=== PATIENT | female | born 1960 | race African-American/Black ===

== ENCOUNTER 2016-10-09 06:30 | Emergency (ER) | payer MEDICAID ==
[~2016-10-09] VITALS: Ht 149.9 cm; Wt 45.4 kg
[~2016-10-09 06:30] MED LIST: KEFLEX500 MG ORAL; PRILOSEC40 MG ORAL; albuterol
[2016-10-09] MEDS ORDERED: ZANTAC150 MG ORAL (07:00)
[2016-10-09] MEDS ORDERED: AUGMENTIN 875-1 EAC1 ORAL (07:09)
[2016-10-09 07:17] VITALS: BP 120/77
--- NOTE | 2016-10-09 08:11 | Emergency Room Report ---
History of Present Illness General Chief Complaint: General Complaint Source: Patient Present Illness HPI 55-year-old female presents ED complaining of pain and swelling in her left forearm. States 3 days ago she fell and a splinter got stuck in her left forearm. Tetanus is up-to-date. Patient notes pain and swelling to the left forearm. Pain is throbbing, 3/10, nonradiating. No aggravating relieving factors. No fevers or chills. Denies discharge. Denies any other associated symptoms. Allergies: Coded Allergies: No Known Allergies (Unverified , 07/05/15) Patient History Past Medical History: asthma, COPD, GERD Past Surgical History: none Pertinent Family History: none Social History: Denies: alcohol use, drug use, smoking Last Menstrual Period: 3 years ago Now: No : 1 Para: 1 Immunizations: UTD Reviewed Nursing Documentation: PMH: Agreed, PSxH: Agreed Nursing Documentation-PMH Hx Asthma: Yes Hx COPD: Yes Hx Gastrointestinal Problems: Yes - ulcers Review of Systems All Other Systems: negative except mentioned in HPI Physical Exam Vital Signs Date Time Temp Pulse Resp B/P Pulse Ox O2 Delivery O2 Flow Rate FiO2 10/09/16 06:52 98.2 83 20 118/82 100 Room Air Sp02 EP Interpretation: reviewed, normal General Appearance: no apparent distress, alert, GCS 15, non-toxic Head: normocephalic Eyes: bilateral eye PERRL, bilateral eye normal inspection ENT: normal ENT inspection Neck: normal inspection Respiratory: normal inspection Cardiovascular #1: normal inspection Gastrointestinal: normal inspection Rectal: deferred Genitourinary: no CVA tenderness Musculoskeletal: tender - TTP to L forearm. mild swelling noted. +erythema. no fluctuance Neurologic: alert, oriented x3, responsive, motor strength/tone normal, sensory intact, speech normal Psychiatric: normal inspection Skin: other - erythema/swelling to L forearm Lymphatic: normal inspection Medical Decision Making Diagnostic Impression: Primary Impression: Splinter of upper extremity Qualified Codes: S40.852A - Superficial foreign body of left upper arm, initial encounter ER Course Hospital Course 55-year-old female presents to ED with redness, swelling to left forearm. Status post fell on splinter 3 days ago Differential diagnoses include: Cellulitis, dermatitis, insect bite, abscess Clinical course Patient placed on stretcher. After initial history, physical exam reveals a female in no acute distress. On exam there is a site for mild erythema and swelling to the left forearm. No fluctuance. No discharge. I am unable to palpate the foreign body. Given the wound is 3 days old I explained to the patient we are unable to remove the splinter as it can cause further damage. Patient will be placed on antibiotics and instructed that the foreign body will resorb Diagnosis - splinter of upper extremity stable and discharged to home with prescription for Augmentin. Instructed to followup with PMD. Instructed return to ED if symptoms recur or worsen Last Vital Signs Date Time Temp Pulse Resp B/P Pulse Ox O2 Delivery O2 Flow Rate FiO2 10/09/16 07:17 73 16 120/77 100 Room Air 10/09/16 07:17 98.0 Status: improved Disposition: HOME, SELF-CARE Condition: Stable Scripts Amoxicillin/Potassium Clav 875-125* (AUGMENTIN 875-125 TABLET*) 1 Each Tablet 1 TAB ORAL TWICE A DAY, #14 TAB Prov: CHANG LOMELI M.D. 10/09/16 Referrals: NOT CHOSEN [facility]Y/,REFERRING (PCP) Patient Instructions: Sliver Removal, Care After CHANG LOMELI M.D. Oct 09, 2016 08:11
== END 2016-10-09 07:19 | disposition home or self-care (01) ==
LOC: EMR 07:07
DX: S40.852A Superficial foreign body of left upper arm, initial encounter (principal); J44.9 Chronic obstructive pulmonary disease, unspecified; J45.909 Unspecified asthma, uncomplicated; K21.9 Gastro-esophageal reflux disease without esophagitis; W45.8XXA Other foreign body or object entering through skin, initial encounter; Y92.9 Unspecified place or not applicable; Y99.8 Other external cause status
CPT/HCPCS: 99283

== ENCOUNTER 2017-01-07 11:53 | Emergency (ER) | payer MEDICAID ==
[~2017-01-07] VITALS: Ht 149.9 cm; Wt 44.5 kg
[~2017-01-07 11:53] MED LIST changes: +AUGMENTIN 875-1 EAC1 ORAL; +ZANTAC150 MG ORAL
[2017-01-07 12:11] VITALS: BP 116/79
[2017-01-07] MEDS ORDERED: Ketorolac 30mg Inj IM ONE (12:45)
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
[2017-01-07 15:21] VITALS: BP 115/75
[2017-01-07 16:50] VITALS: BP 115/75
--- NOTE | 2017-01-08 10:52 | Diagnostic Imaging Report ---
Indication: Back pain Technique: Continuous helical transaxial imaging of the lumbar spine was obtained from the lung bases to the pubic symphysis. No IV contrast was administered. Coronal 2-D reformats were also obtained. Study obtained in a Siemens sensation [address] Total Dose length Product (DLP): [address] Dose Index Volume (CTDIvol): 9 mGy Comparison: None Findings: There is an acute fracture of the right transverse process of L2 and also at L3. The vertebral bodies pedicles and remainder of the posterior elements appear intact otherwise. Narrowing and vacuum phenomena of several intervertebral discs noted including L2-3, L3-4 and L4-5. There is sclerosis and hypertrophy of the facets at multiple levels. Disc herniations are also demonstrated at L2-3, L3-4 and L4-5. The discs are visualized because of some calcification of portions of the annulus and disc. Acuity of these disc herniations is unknown. There is the suggestion of narrowing of the lateral recess and possible central stenosis as well at these 3 levels. Alignment is normal. Bones are osteopenic. Transitional anatomy is noted at the lumbosacral junction. There is apparent pseudoarthrosis noted on the right side (for example image 54, series 4). Impression: Acute right transverse process fractures of L2 and L3. Degenerative disc disease and facet arthropathy at multiple levels as described above. Disc herniations at L2-3, L3-4 and L4-5, 2 indeterminate. Transitional anatomy. The CT scanner at [facility] is accredited by the [employer] and the scans are performed using dose optimization techniques as appropriate to a performed exam including Automatic Exposure control.
== END 2017-01-07 16:52 | disposition short-term general hospital (02) ==
LOC: EMR 13:10
DX: S32.008A Other fracture of unspecified lumbar vertebra, initial encounter for closed fracture (principal); N28.1 Cyst of kidney, acquired; M47.897 Other spondylosis, lumbosacral region; R53.1 Weakness; M41.9 Scoliosis, unspecified; G89.29 Other chronic pain
CPT/HCPCS: 72131; 96372; 99285; J1885

== ENCOUNTER 2019-01-11 06:11 | Emergency (ER) | payer MEDICAID ==
[~2019-01-11] VITALS: Ht 149.9 cm; Wt 41.7 kg
--- NOTE | 2019-01-11 06:21 | NUR ---
ED Nurse Note: DIA [place] FROM [place] WITH LEFT LEG PAIN AND BODYACHE SINCE MORNING. AO3; FLAT AFFECT; UNKEMPT. NAD. VSS. AMBULATED FROM EMS GURNEY TO BED WITH ASSISTANCE. RESPIRATIONS EVEN AND UNLABORED.
[2019-01-11 06:24] VITALS: BP 117/74
--- NOTE | 2019-01-11 06:36 | NUR ---
ED Nurse Note: ERMD AT BEDSIDE.
--- NOTE | 2019-01-11 06:48 | Emergency Room Report ---
History of Present Illness General Chief Complaint: Pain Source: Patient, EMS Present Illness HPI Patient brought in by paramedics for reports of initially left leg pain Upon evaluation patient resting comfortably in the bed Requires several attempts of arousal to awaken patient then points to her right leg Reports that is been hurting for over a month Nurse reports that patient had initially pointed to her left leg No obvious injuries are clinically visible Patient is allowed to rest and will reattempt obtaining further history when more awake Allergies: Coded Allergies: No Known Allergies (Unverified , 07/05/15) Patient History Past Medical History: see triage record Pertinent Family History: none Now: No Reviewed Nursing Documentation: PMH: Agreed; PSxH: Agreed Nursing Documentation-PMH Hx Asthma: Yes Review of Systems All Other Systems: negative except mentioned in HPI Physical Exam Vital Signs Date Time Temp Pulse Resp B/P (MAP) Pulse Ox O2 Delivery O2 Flow Rate FiO2 01/11/19 06:12 98.4 77 17 117/74 (88) 96 Room Air Sp02 EP Interpretation: reviewed, normal General Appearance: well appearing, no apparent distress Head: normocephalic, atraumatic Eyes: bilateral eye PERRL, bilateral eye EOMI ENT: hearing grossly normal, normal pharynx Neck: full range of motion, supple Respiratory: lungs clear Cardiovascular #1: regular rate, rhythm Gastrointestinal: non tender, soft Musculoskeletal: normal inspection, back normal Neurologic: responsive - On initial evaluation requires several arousal attempts to awaken Skin: normal color, no rash Lymphatic: no adenopathy Procedures Splinting Splinting : Consent: Verbal Location: Ankle Pre-Made Type: aircast Splint: sugar-tong Pre-Proc Neuro Vasc Exam: normal Post-Proc Neuro Vasc Exam: normal Patient Tolerated: Well Complications: None Medical Decision Making Diagnostic Impression: Primary Impression: Ankle sprain ER Course Patient's differential initially was limited given her mentation After resting over several hours patient has awakened reports that she was having pain to the right ankle and lower leg Does not recall any acute episode of trauma denies any redness pain is worse with attempting to ambulate X-ray imaging is done does not show any acute pathology Patient had splinting applied with crutches and is stable for close outpatient follow-up Other differential such as early cellulitis needs to be considered and requires close follow-up Other X-Ray Diagnostic Results Other X-Ray Diagnostic Results #1: X-Ray ordered: right Ankle # of Views/Limited Vs Complete: 3 View Indication: Pain EP Interpretation: Yes Interpretation: no dislocation, no fractures, other - Soft tissue swelling Impression: No acute disease Electronically Signed by: Ama Rodriguez DO Other X-Ray Diagnostic Results #2: X-Ray ordered: right Foot # of Views/Limited Vs Complete: 3 View Indication: Pain EP Interpretation: Yes Interpretation: no dislocation, no soft tissue swelling, no fractures Impression: No acute disease Electronically Signed by: Ama Rodriguez DO Last Vital Signs Date Time Temp Pulse Resp B/P (MAP) Pulse Ox O2 Delivery O2 Flow Rate FiO2 01/11/19 06:24 98.4 80 17 117/74 96 Room Air Status: improved Disposition: HOME, SELF-CARE Condition: Improved Additional Instructions: Patient is provided with the discharge instructions notified to follow up with primary doctor in the next 2-3 days otherwise return to the er with any worsening symptoms. Please note that this report is being documented using [employer] technology. This can lead to erroneous entry secondary to incorrect interpretation by the dictating instrument. Ama Rodriguez DO Jan 11, 2019 06:48
--- NOTE | 2019-01-11 07:01 | NUR ---
HAND-OFF: Report given to THIERRY WILLSON RN. PATIENT SLEEPING IN BED WITH NAD.
--- NOTE | 2019-01-11 07:28 | NUR ---
ED Nurse Note: Received pt in bed sleeping. woke her up and tried to ask questions but pt refused as stating "I am sleepy I need to sleep." no s/s of cardiac or pulmonary distress noted at this time.
--- NOTE | 2019-01-11 08:43 | NUR ---
ED Nurse Note: woke pt up again and asked for pain. pt refused to answer as stating "Whatever." skin clean and intact. pt denied injury. pt went back to sleep as stating "I need to sleep."
--- NOTE | 2019-01-11 10:16 | NUR ---
ED Nurse Note: woke pt up again and pt agreed with x-ray.
[2019-01-11] MEDS ORDERED: UNOBMED (10:18)
[2019-01-11 10:21] VITALS: BP 121/78
--- NOTE | 2019-01-11 10:46 | NUR ---
ED Nurse Note: X-ray at bedside.
--- NOTE | 2019-01-11 11:14 | Diagnostic Imaging Report ---
EXAM: XR Right Foot Complete, 3 or More Views CLINICAL HISTORY: TRAUMA TECHNIQUE: Frontal, lateral and oblique views of the right foot. COMPARISON: None FINDINGS: Bones/joints: No displaced fracture or dislocation identified. Osteopenia. Degenerative changes of the right first MTP joint. Ankle joint effusion. Soft tissues: Mild soft tissue prominence along the right first MTP joint. IMPRESSION: No displaced fracture or dislocation identified.
--- NOTE | 2019-01-11 11:16 | Diagnostic Imaging Report ---
EXAM: XR Right Ankle Complete, 3 or More Views CLINICAL HISTORY: TRAUMA TECHNIQUE: Frontal, lateral and oblique views of the right ankle. COMPARISON: None FINDINGS: Bones/joints: No displaced fracture or dislocation identified. Ankle mortise is intact. Ankle joint effusion. Soft tissues: Soft tissue swelling over the right lateral malleolus. IMPRESSION: No displaced fracture or dislocation identified. Soft tissue swelling over the right lateral malleolus.
--- NOTE | 2019-01-11 11:34 | NUR ---
ED Nurse Note: IMELDA wrap applied on Rt ankle.
[2019-01-11 11:50] VITALS: BP 121/78
--- NOTE | 2019-01-11 11:50 | NUR ---
ER DISCHARGE NOTE: Patient is cleared to be discharged per ERMD after IMELDA wrap and crutches for Rt leg, pt is aox4, pt has an address, not homeless, on room air, with stable vital signs. pt was given dc instructions, pt was able to verbalize understanding, pt id band removed. pt is able to ambulate with steady gait. pt took all belongings.
== END 2019-01-11 11:50 | disposition home or self-care (01) ==
LOC: EDBD 06:11 → EMR 07:14
DX: M79.605 Pain in left leg (principal); M79.604 Pain in right leg
CPT/HCPCS: 99284

== ENCOUNTER 2020-07-27 09:44 | Emergency (ER) | payer MEDICAID ==
[~2020-07-27] VITALS: Ht 149.9 cm; Wt 44.5 kg
[~2020-07-27 09:44] MED LIST changes: +IBUPROFEN600 M1 ORAL; +UNOBMED
[2020-07-27 09:58] VITALS: BP 102/71
--- NOTE | 2020-07-27 10:00 | NUR ---
ED Nurse Note: Patient wheeled in to ER from home due to left side pain(close to chest) and right side arm pain that radiates down to right foot pain x 2 days. Denies fall or injury. Patient AAO x4, VSS at this time
[2020-07-27] MEDS ORDERED: Methocarbamol 750mg tab ORAL ONE (10:45)
[2020-07-27] MEDS ORDERED: Ketorolac 60mg Inj IM ONE (10:45)
[2020-07-27] MEDS ORDERED: NEURONTIN100 MG ORAL (11:07)
[2020-07-27] MEDS ORDERED: LIDODERM700 M1 TOPIC (11:07)
[2020-07-27] MEDS ORDERED: NAPROXEN500 M1 ORAL (11:07)
[2020-07-27] MEDS ORDERED: ROBAXIN-750750 MG PO (11:07)
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
--- NOTE | 2020-07-27 11:38 | NUR ---
ER DISCHARGE NOTE: Patient is cleared to be discharged per ERMD, pt is aox4, on room air, with stable vital signs. pt was given dc and prescription instructions, pt was able to verbalize understanding, pt id band removed, pt is able to ambulate with steady gait. pt took all belongings.
--- NOTE | 2020-07-27 15:00 | Diagnostic Imaging Report ---
Indication: Left shoulder pain Technique: 3 views of the left shoulder Comparison: none Findings: No acute fracture. No dislocation. Joint spaces are preserved Impression: Negative
--- NOTE | 2020-07-27 15:02 | Diagnostic Imaging Report ---
Indication: Chest pain Technique: One view of the chest Comparison: none Findings: Lungs and pleural spaces are clear. Heart size is normal. Impression: No acute process
== END 2020-07-27 11:37 | disposition home or self-care (01) ==
LOC: EMR 10:42
DX: M19.90 Unspecified osteoarthritis, unspecified site (principal); M54.30 Sciatica, unspecified side; J45.909 Unspecified asthma, uncomplicated
CPT/HCPCS: 71045; 73030; 96372; J8540; Z7502; 99284